=== PATIENT | male | born 1980 | race African-American/Black ===

== ENCOUNTER 2017-09-26 06:18 | Emergency (ER) | payer OTHER | END 2017-09-26 07:31 | disposition home or self-care (01) | LOC: M ED 06:18 | DX: S80.211A Abrasion, right knee, initial encounter (principal); W01.0XXA Fall on same level from slipping, tripping and stumbling without subsequent striking against object, initial encounter; Y92.139 Unspecified place military base as the place of occurrence of the external cause; Y99.1 Military activity | CPT/HCPCS: 73564 ==